=== PATIENT | female | born 1975 | race American Indian/Alaskan Native ===

== ENCOUNTER 2016-12-08 19:22 | Emergency (ER) | payer SELFPAY ==
[2016-12-08 20:27] VITALS: BP 125/86
[2016-12-08 21:53] LABS: Bilirubin,Urine NEG (Negative); Blood,Urine NEG (Negative); Ketones,Urine NEG (Negative); Leukocyte Esterase,Urine NEG (Negative); Mucus,Urine FEW /HPF; Nitrite,Urine NEG (Negative); Protein,Urine <15 mg/dL mg/dL (Negative); Urobilinogen,Urine < 2.0 mg/dL (<2.0)
[2016-12-08] MEDS ORDERED: TORADOL IM ONE (21:58)
[2016-12-08] MEDS ORDERED: ROBAXIN PO PRN (22:00)
--- NOTE | 2016-12-08 22:45 | XRay Report ---
FINAL REPORT EXAM: XR HIP 2-3V LT HISTORY: Left hip joint pain TECHNIQUE: Single-view pelvis with additional views the left hip. 3 images PRIORS: None. FINDINGS: Bone mineralization appears within normal limits. The pelvic ring appears intact. No acute fracture or subluxation is identified. Metallic structure is seen overlying left hemipelvis measuring approximately 1.9 centimeters. IMPRESSION: 1. No acute osseous abnormality is identified.
--- NOTE | 2016-12-08 22:48 | XRay Report ---
FINAL REPORT EXAM: XR SPINE LUMBOSACRAL 2-3V HISTORY: low back pain TECHNIQUE: Lumbar spine three views 3 images PRIORS: None. FINDINGS: Metallic density structure is seen projecting over left hemipelvis measuring approximately 1.9 centimeters in length. Vertebral body height is preserved. No acute fracture or anterolisthesis is identified. Intervertebral disc height is preserved. IMPRESSION: 1. No acute osseous abnormality is identified.
--- NOTE | 2016-12-08 23:21 | Emergency Department Report ---
ED Back Pain/Injury HPI - General Chief Complaint: Back Pain/Injury Stated Complaint: BACK PAIN Time Seen by Provider: 12/08/16 20:53 Source: patient Limitations: No Limitations - History of Present Illness Initial Comments: Pt presents to ED with c/o pain in her left hip and gluteal region x 3 days ago. Pt has past hx of chronic pains in her left gluteal region. She has being diagnosed with sciatica. Problem has being on-going for 2 years now. No antecedent hx of trauma prior recent trigger of pain 3 days ago. Pt feels some tingling and numbness radiating down the posterior surface of her left thigh. No incontinences of urine or stools. No N/V/D, no fever -: Gradual, days(s) (3), unknown (progressively getting worse) Similar Symptoms Previously: Yes Place: work (Pt recalls sitting at her desk at work) Radiation: left leg (posterior aspect left thigh) Quality: sharp, stabbing, tingling Consistency: constant Improves With: immobilization Worsens With: movement, sitting upright, walking Associated Symptoms: numbness, difficulty walking. denies: confusion, difficulty urinating, diaphoresis, incontinence, fever/chills, constipation, headaches, abdominal pain, loss of appetite, malaise, nausea/vomiting, rash, seizure, shortness of breath, syncope - Related Data Previous Rx's Medication Instructions Recorded Last Taken Type HYDROcodone/APAP 5-325 [Beaver 1 each PO Q6HR PRN #16 tablet 05/31/15 Unknown Rx 5/325] predniSONE [Deltasone] 20 mg PO BID #10 tab 05/31/15 Unknown Rx Gabapentin [Neurontin] 100 mg PO Q8HR #30 capsule 12/08/16 Unknown Rx Ibuprofen 600 mg PO Q6H PRN #30 tablet 12/08/16 Unknown Rx methylPREDNISolone [Medrol] 4 mg PO DAILY #1 packet 12/08/16 Unknown Rx Allergies Allergy/AdvReac Type Severity Reaction Status Date / Time No Known Allergies Allergy Verified 12/08/16 20:19 ED Review of Systems ROS: Stated complaint: BACK PAIN Other details as noted in HPI Comment: All other systems reviewed and negative Constitutional: denies: chills, diaphoresis, fever, malaise, weakness Eyes: denies: eye discharge, vision change ENT: denies: throat pain, dental pain, hearing loss Respiratory: denies: cough, orthopnea, shortness of breath Cardiovascular: denies: chest pain, palpitations, dyspnea on exertion, edema, syncope, paroxysmal nocturnal dyspnea Endocrine: no symptoms reported Gastrointestinal: denies: nausea, vomiting, diarrhea, constipation, hematemesis Genitourinary: denies: dysuria, frequency, hematuria, discharge Musculoskeletal: other (pain in her left gluteal region) Skin: denies: change in color, change in hair/nails, pruritus Neurological: numbness (posterior aspect left thigh) ED Past Medical Hx - Past Medical History Previous Medical History?: No - Surgical History Past Surgical History?: Yes Additional Surgical History: Tubaligation - Social History Smoking Status: Never Smoker Substance Use Type: None - Medications Home Medications: Home Medications Medication Instructions Recorded Confirmed Last Taken Type HYDROcodone/APAP 5-325 [[place] 1 each PO Q6HR PRN #16 tablet 05/31/15 Unknown Rx 5/325] predniSONE [Deltasone] 20 mg PO BID #10 tab 05/31/15 Unknown Rx Gabapentin [Neurontin] 100 mg PO Q8HR #30 capsule 12/08/16 Unknown Rx Ibuprofen 600 mg PO Q6H PRN #30 tablet 12/08/16 Unknown Rx methylPREDNISolone [Medrol] 4 mg PO DAILY #1 packet 12/08/16 Unknown Rx ED Physical Exam - General Limitations: No Limitations General appearance: alert, in distress (moderate) - Head Head exam: Present: atraumatic, normocephalic, normal inspection - Eye Eye exam: Present: normal appearance, PERRL, EOMI - ENT ENT exam: Present: normal exam, normal orophraynx, mucous membranes moist, TM's normal bilaterally - Neck Neck exam: Present: normal inspection, full ROM. Absent: tenderness, meningismus, lymphadenopathy - Respiratory Respiratory exam: Present: normal lung sounds bilaterally. Absent: respiratory distress, wheezes, rales, chest wall tenderness, accessory muscle use - Cardiovascular Cardiovascular Exam: Present: regular rate, normal rhythm, normal heart sounds. Absent: irregular rhythm, systolic murmur, diastolic murmur - GI/Abdominal GI/Abdominal exam: Present: soft, normal bowel sounds. Absent: distended, tenderness, guarding, rigid, hyperactive bowel sounds, hypoactive bowel sounds - Rectal Rectal exam: Present: deferred - Back Exam Back exam: Present: normal inspection, muscle spasm, other (tenderness, left gluteal region). Absent: full ROM, CVA tenderness (R), CVA tenderness (L), paraspinal tenderness, vertebral tenderness - Neurological Exam Neurological exam: Present: alert, oriented X3, CN II-XII intact, abnormal gait (due to pain in her left gluteal region) ED Course Vital Signs 12/08/16 12/08/16 20:19 22:40 Temperature 98.6 F Pulse Rate 90 Respiratory 18 Rate Blood Pressure 125/86 O2 Sat by Pulse 100 Oximetry - Reevaluation(s) Reevaluation #1: 12/08/16 23:28 Pt feels much better after IM Toradol ED Medical Decision Making - Radiology Data Radiology results: report reviewed, image reviewed Critical Care Time: No Critical care attestation.: If time is entered above; I have spent that time in minutes in the direct care of this critically ill patient, excluding procedure time. ED Disposition Clinical Impression: Sciatic leg pain Disposition: TO HOME OR SELFCARE Is pt being admited?: No Does the pt Need Aspirin: No Condition: Stable Instructions: Sciatica (ED), Lumbar Radiculopathy (ED) Additional Instructions: Follow up with your PCP in 2-3 days. You may Call Dr Stern's office for an appointment , if you do not have a PCP Prescriptions: Gabapentin [Neurontin] 100 mg PO Q8HR #30 capsule Ibuprofen 600 mg PO Q6H PRN #30 tablet PRN Reason: Pain methylPREDNISolone [Medrol] 4 mg PO DAILY #1 packet Referrals: PRIMARY MD TEJAL [Primary Care Provider] - 3-5 Days TAVARES STERN MD [Staff Physician] - 3-5 Days (Call office for an appointment) Time of Disposition: 23:34
== END 2016-12-09 00:08 | disposition home or self-care (01) ==
LOC: ED 19:22
DX: M54.32 Sciatica, left side (principal)
CPT/HCPCS: 72100; 73502; 81001; 81025; 87086; 96372; 99284; J1885; J2930